=== PATIENT | female | born 1960 | race African-American/Black ===

== ENCOUNTER 2017-09-19 04:25 | Emergency (ER) | payer MEDICAID ==
[~2017-09-19] VITALS: Ht 172.7 cm; Wt 105.9 kg
--- NOTE | 2017-09-19 04:53 | NUR ---
PT IN BED. UPON INITIAL ASSESSMENT PT DENIED MY ATTEMPT TO VISUALLY ASSESS BUMP IN GLUTEAL REGION. PT STATES THAT SHE HAS HAD THIS BUMP FOR 6 MONTHS. VS WNL. NO SIGNS OF DISTRESS WITNESSED BY NURSE OR EXPRESSED BY PT.
[2017-09-19] MEDS ORDERED: KETOROLAC TROMETHAMINE 15 MG INJ IM ONE (05:00)
[2017-09-19] MEDS ORDERED: KETOROLAC TROMETHAMINE 15 MG INJ ONE (05:04)
--- NOTE | 2017-09-19 05:10 | NUR ---
Patient discharged to home in stable conditon. Written and verbal after care instructions given. Patient verbalizes understanding of instructions. Patient reported reduced pain in gluteal region upon discharge. Patient able to ambulate unassisted with steady gait. Patient left with all personal belongings.
[2017-09-19 05:21] VITALS: BP 142/82
== END 2017-09-19 05:11 | disposition home or self-care (01) ==
LOC: ER 04:28
DX: M54.5 Low back pain (principal); Z59.0 Homelessness
CPT/HCPCS: A4663; J1885

== ENCOUNTER 2017-09-30 00:53 | Emergency (ER) | payer MEDICAID ==
[~2017-09-30] VITALS: Ht 172.7 cm; Wt 101.6 kg
--- NOTE | 2017-09-30 01:58 | NUR ---
Dr. Tejada at bedside for MSE.
[2017-09-30] MEDS ORDERED: ACETAMINOPHEN ES 500 MG TABLET PO ONE (02:00)
[2017-09-30] MEDS ORDERED: ACETAMINOPHEN ES 500 MG TABLET ONE (02:05)
--- NOTE | 2017-09-30 02:05 | NUR ---
Patient discharged to home in stable conditon. Written and verbal after care instructions given. Patient verbalizes understanding of instructions. Patient ambulated out of ER with steady gait, no acute signs of distress, VSS, all belongings taken.
[2017-09-30 02:28] VITALS: BP 152/76
== END 2017-09-30 02:10 | disposition home or self-care (01) ==
LOC: ER 00:54
DX: G89.29 Other chronic pain (principal); M54.5 Low back pain; Z59.0 Homelessness
CPT/HCPCS: A4663; A9150

== ENCOUNTER 2017-10-24 17:38 | Emergency (ER) | payer MEDICAID ==
[~2017-10-24] VITALS: Ht 172.7 cm; Wt 101.6 kg
[2017-10-24] MEDS ORDERED: SULFAMETH/TRIMETH 800/160 MG TABLET ONE (18:10)
[2017-10-24] MEDS ORDERED: MUPIROCIN 2% OINT 22 GM TUBE ONE (18:10)
[2017-10-24] MEDS ORDERED: SULFAMETH/TRIMETH 800/160 MG TABLET PO ONE (18:15)
[2017-10-24] MEDS ORDERED: MUPIROCIN 2% OINT 22 GM TUBE TP ONE (18:15)
[2017-10-24 18:19] VITALS: BP 147/87
--- NOTE | 2017-10-24 18:19 | NUR ---
Patient discharged to home in stable conditon. Written and verbal after care instructions given. Patient verbalizes understanding of instructions.
== END 2017-10-24 18:20 | disposition home or self-care (01) ==
LOC: ER 17:39
DX: B95.8 Unspecified staphylococcus as the cause of diseases classified elsewhere (principal); E11.9 Type 2 diabetes mellitus without complications; G89.29 Other chronic pain; F17.210 Nicotine dependence, cigarettes, uncomplicated; Z59.0 Homelessness
CPT/HCPCS: A4663

== ENCOUNTER 2017-11-05 07:03 | Emergency (ER) | payer MEDICAID ==
[~2017-11-05] VITALS: Ht 170.2 cm; Wt 106.6 kg
--- NOTE | 2017-11-05 07:38 | NUR ---
Patient eloped from facility. ER physician notified.
--- NOTE | 2017-11-05 08:20 | NUR ---
Patient returned to the registration window and stated "why hasn't anyone called me yet?" Patient informed that she had left and that staff were not aware that she had returned. Patient to room 3A, [facility] performed MSE.
== END 2017-11-05 09:27 | disposition home or self-care (01) ==
LOC: ER 07:03
DX: M25.572 Pain in left ankle and joints of left foot (principal); M25.571 Pain in right ankle and joints of right foot; E11.9 Type 2 diabetes mellitus without complications; F17.210 Nicotine dependence, cigarettes, uncomplicated; Z59.0 Homelessness
CPT/HCPCS: 73630; A4663

== ENCOUNTER 2017-11-06 08:29 | Emergency (ER) | payer MEDICAID ==
[~2017-11-06] VITALS: Ht 172.7 cm; Wt 101.6 kg
[2017-11-06 09:25] LABS: BASOPHILS # (AUTO) 0.1 K/uL (0.0-8.0); EOSINOPHILS # (AUTO) 0.1 K/uL (0.0-0.7); EOSINOPHILS % (AUTO) 1.9 % (0.0-7.0); HEMOGLOBIN 11.1 g/dL (10.9-14.3); LYMPHOCYTES # (AUTO) 1.7 K/uL (20.0-40.0); LYMPHOCYTES % (AUTO) 29.1 % (20.5-51.5); MEAN CORPUSCULAR HEMOGLOBIN 28.7 uug (24.7-32.8); MEAN CORPUSCULAR HGB CONC 34 g/dL (32.3-35.6); MEAN CORPUSCULAR VOLUME 85.2 fL (75.5-95.3); MONOCYTES # (AUTO) 0.5 K/uL (2.0-10.0); NEUTROPHILS # (AUTO) 3.6 K/uL (1.8-8.9); PLATELET COUNT (AUTO) 270 K/uL (179-408); RED BLOOD CELL COUNT(AUTO) 3.87 MIL/uL (3.63-4.92); WHITE BLOOD COUNT (AUTO) 5.9 K/uL (3.8-11.8)
[2017-11-06 09:31] LABS: CREATININE 0.8 mg/dL (0.6-1.3); POTASSIUM 4.2 mmol/L (3.5-5.1)
--- NOTE | 2017-11-06 09:44 | NUR ---
Pt is resting in gurcounce and watching TV with NAD noted at this time.
[2017-11-06 09:46] LABS: BILIRUBIN,DIRECT 0.1 mg/dL (0.0-0.2); BILIRUBIN,TOTAL 0.2 mg/dL (0.2-1.0); TOTAL PROTEIN, SERUM 7.1 g/dL (6.4-8.2)
--- NOTE | 2017-11-06 10:22 | NUR ---
Patient discharged to home in stable conditon. Written and verbal after care instructions given. Patient verbalizes understanding of instructions.
== END 2017-11-06 10:23 | disposition home or self-care (01) ==
LOC: ER 08:29
DX: G89.29 Other chronic pain (principal); R07.9 Chest pain, unspecified; Z59.0 Homelessness; F17.200 Nicotine dependence, unspecified, uncomplicated
CPT/HCPCS: 36415; 71045; 80048; 80076; 83880; 84484; 85025; 93005; 99285; A4663; 70030-TC

== ENCOUNTER 2017-11-07 00:34 | Emergency (ER) | payer MEDICAID ==
--- NOTE | 2017-11-07 01:00 | NUR ---
CALLED FOR PT SLEEPING EASILY AROUSED.WANTS TO SLEEP FOR A WHILE
--- NOTE | 2017-11-07 02:30 | NUR ---
PT CONTINUES SLEEPING AROUSES WITHOUT DIFFICULTY WANTS TO REST RIGHT NOW
--- NOTE | 2017-11-07 03:30 | NUR ---
PT SLEEPING AROUSES WITHOUT DFFICULTY WANTS TO SLEEP
--- NOTE | 2017-11-07 05:30 | NUR ---
PT CONTINUES SLEEPING WANTS TO REST AND KEEP FEET UP RIGHT NOW
== END 2017-11-07 06:39 | disposition left against medical advice (07) ==
LOC: ER 00:34
DX: Z53.21 Procedure and treatment not carried out due to patient leaving prior to being seen by health care provider (principal)